=== PATIENT | male | born 1940 | race Caucasian/White ===

== ENCOUNTER 2017-09-08 07:05 | Day surgery (SDC) | payer MEDICARE, BC ==
[2017-09-08] MEDS ORDERED: PROPOFOL 500 MG/50 ML EMU IV ONE (07:41)
[2017-09-08] MEDS ORDERED: LIDOCAINE HCL 1% MPF SOL ONE (07:41)
[2017-09-08 08:59] VITALS: RESP 20
[2017-09-08 09:19] VITALS: BP 144/64; PULSE 72; TEMP 97.2; O2SAT 93
== END 2017-09-08 09:35 | disposition home or self-care (01) | DRG 951 ==
LOC: SURG 07:05
PROVIDERS: ATTEND Surgery
DX: Z12.11 Encounter for screening for malignant neoplasm of colon (principal); D12.0 Benign neoplasm of cecum; Z80.0 Family history of malignant neoplasm of digestive organs; Z86.010 Personal history of colon polyps; D12.3 Benign neoplasm of transverse colon
CPT/HCPCS: J2001; J2704

== ENCOUNTER 2019-01-03 11:38 | Day surgery (SDC) | payer MEDICARE, BC ==
[2019-01-03] MEDS ORDERED: FENTANYL 100MCG/2ML SOL ONE (12:05)
[2019-01-03] MEDS ORDERED: MIDAZOLAM 2 MG/2 ML SOL ONE (12:05)
[2019-01-03] MEDS ORDERED: ACETAZOLAMIDE 250 MG PO ONE (12:06)
[2019-01-03] MEDS: PHENYLEPHRINE HCL 10% OPHTHAL SOL ONE ×3 (12:11→12:20)
[2019-01-03] MEDS: TROPICAMIDE 1% OPHTH SOL ONE ×3 (12:12→12:20)
[2019-01-03] MEDS: MOXIFLOXACIN-HOME SOL RIGHTEYE ONE ×2 (12:12→12:17)
[2019-01-03] MEDS: KETOROLAC/HOME 0.5% SOL RIGHTEYE ONE ×3 (12:12→12:21)
[2019-01-03] MEDS: CYCLOPENTOLATE 1% SOL ONE ×3 (12:12→12:20)
[2019-01-03] MEDS: TETRACAINE HCL 0.5 % OPHTH 1 DROP SOL ONE ×2 (12:21→13:32)
[2019-01-03] MEDS ORDERED: POVIDONE IODINE 5% SOL ONE (13:24)
[2019-01-03] MEDS ORDERED: BSS W/ 0.5 MG P.F. EPI 1 BOTTLE ONE (13:24)
[2019-01-03] MEDS ORDERED: LIDOCAINE HCL 2% MPF 10 ML SOL ONE (13:24)
[2019-01-03] MEDS ORDERED: ACETAZOLAMIDE 500 MG CER PO ONE (13:51)
[2019-01-03 13:57] VITALS: BP 124/79; PULSE 76; RESP 18; TEMP 96.6; O2SAT 91
== END 2019-01-03 14:14 | disposition home or self-care (01) | DRG 125 ==
LOC: SURG 11:38
PROVIDERS: ATTEND Ophthalmology
DX: H25.89 Other age-related cataract (principal)
CPT/HCPCS: J2250; J3010; A9270-GY

== ENCOUNTER 2019-01-17 10:46 | Day surgery (SDC) | payer MEDICARE, BC | END 2019-01-17 12:55 | disposition home or self-care (01) | LOC: SURG 10:46 ==